=== PATIENT | female | born 1985 | race Caucasian/White ===

== ENCOUNTER 2020-07-15 21:48 | Emergency (ER) | payer OTHER ==
[~2020-07-15 21:48] MED LIST: IBUPROFEN800 MG PO; NAPROXEN 250 M250 MG PO; NORCO 5-325 TA1 EACH PO
[2020-07-16] MEDS ORDERED: AUGMENTIN 875-1 EACH PO (00:47)
== END 2020-07-16 01:30 | disposition home or self-care (01) ==
LOC: ER1 21:48
DX: S01.85XA Open bite of other part of head, initial encounter (principal); Z23 Encounter for immunization; W55.01XA Bitten by cat, initial encounter
CPT/HCPCS: 90471; 90715; 99283